=== PATIENT | female | born 1955 | race Caucasian/White ===

== ENCOUNTER 2019-08-20 16:46 | Observation (INO) | payer MEDICARE, OTHER ==
[~2019-08-20] VITALS: Ht 167.6 cm; Wt 104.3 kg
[~2019-08-20 16:46] MED LIST: AMBIEN10 MG PO; CELEXA10 MG PO; SIMVASTATIN10 MG PO; TIROSINT25 MCG PO
--- OUTSIDE RECORDS SUMMARY | 2019-08-20 16:49 | XMS REPORT | Summary of Care ---
Author Author Abril Floyd M.A. Organization Unknown Address Unknown Phone Unavailable Care Team Providers Care Aquatic Performer Name Role Phone Abril Floyd M.A. Unavailable Unavailable CATALINO Barahona, CHANDNI Unavailable Unavailable BLAKE Camp, ELIZABETH Unavailable Unavailable TRICIA Barahona, RAFAEL Unavailable Unavailable SPARKLE MAZARIEGOS MD Unavailable Unavailable RAVIN AlexandraOBennett, MARGAUX Unavailable Unavailable BLAKE CEMENT FINISHER-C, ELIZABETH Unavailable Unavailable RAVIN GUERRA, MARGAUX Unavailable Unavailable Unavailable Unavailable Functional Status Name Dates Details Functional status health issues are not documented Status: Name Dates Details Cognitive status health issues are not documented Status: Problems Name Dates Details Paronychia of finger (681.02, L03.019) Status: Active Olecranon bursitis (726.33, M70.20) Status: Active Influenza vaccine needed (V04.81, Z23) Status: Active Gastroesophageal reflux disease (530.81, K21.9) Status: Active Urinary tract infection (599.0, N39.0) Status: Active Insomnia (780.52, G47.00) Status: Active Establishing care with new doctor, encounter for (V65.8, Z76.89) Status: Active Hypothyroidism (244.9, E03.9) Status: Active Fracture of left fibula (823.81, S82.402A) Status: Active Fracture of tibia, distal (824.8, S82.309A) Status: Active Reactive depression (300.4, F32.9) Status: Active Urine incontinence (788.30, R32) Status: Active Constipation (564.00, K59.00) Status: Active Cauda equina syndrome (344.60, G83.4) Status: Active Paraplegia (344.1, G82.20) Status: Active Anxiety (300.00, F41.9) Status: Active Moderate episode of recurrent major depressive disorder (296.32, F33.1) Status: Active Decubitus ulcer of buttock, unspecified laterality, unspecified ulcer stage (707.05, L89.309) Status: Active Fracture of left tibia (823.80, S82.202A) Status: Active Medications Name Dates Details Aspirin 81 MG TABS TAKE TABLET 6am once daily Active Morphine Sulfate ER 60 MG Oral Capsule Extended Release 24 Hour TAKE CAPSULE 6am and 6pm once twice daily. * Refills: 0 Active Senokot 8.6 MG Oral Tablet TAKE 4 TABLET DAILY * Refills: 0 Active Docusate Sodium 100 MG Oral Tablet TAKE 2 TABLET TWICE DAILY * Refills: 0 Active Vitamin D3 1000 UNIT Oral Capsule TAKE DIRECTED. * Refills: 0 Active Morphine Sulfate 30 MG Oral Tablet TAKE 2 tablets at noon and one at bedtime as needed * Refills: 0 Active Tylenol Extra Strength TABS TAKE 2 TABLET DAILY * Refills: 0 Active Amitriptyline HCl - 50 MG Oral Tablet TAKE 1 TABLET BY MOUTH EVERY NIGHT AT BEDTIME * Quantity: 90 Refills: 0 RAFAEL CLARKE M.D. * Start : 31-May-2018 Active Levothyroxine Sodium 125 MCG Oral Tablet TAKE 1 TABLET BY MOUTH EVERY DAY * Quantity: 30 Refills: 2 ELIZABETH LOZANO N.P. * Start : 06-Feb-2015 Active PriLOSEC 40 MG CPDR TAKE ONE CAPSULE BY MOUTH EVERY DAY * Refills: 0 Active Fish Oil 1000 MG Oral Capsule ONCE DAILY * Refills: 0 Active Lyrica 75 MG Oral Capsule TAKE 1 CAPSULE 3 TIMES DAILY. * Refills: 0 Active Baclofen 10 MG Oral Tablet Take 1/2 tab twice a day as needed. * Quantity: 90 Refills: 1 CHANDNI BAE M.D. * Start : 03-Jan-2018 Active LORazepam 0.5 MG Oral Tablet TAKE ONE TABLET BY MOUTH 3 TIME A DAY * Quantity: 90 Refills: 1 RAFAEL CLARKE M.D. * Start : 17-Jan-2018 Active Allergies and Adverse Reactions Name Dates Details gabapentin (Allergy) Status: Active Past Medical History Name Dates Details History of depression (V11.8, Z86.59) Status: Resolved History of gastroesophageal reflux (GERD) (V12.79, Z87.19) Status: Resolved History of Stroke syndrome Status: Resolved History of Thyroid trouble (246.9, E07.9) Status: Resolved Procedures Procedure Dates Details History of Tonsillectomy With Adenoidectomy Completed History of Ankle Surgery Completed History of Hysterectomy Completed History of Spinal surgery Completed Immunization Name Dates Details Influenza Lot #: [id number] on: 12-Aug-2014 Family History Name Dates Details Family history of alcohol abuse (V61.41, Z81.1) Status: Active Name Dates Details Family history of diabetes mellitus (V18.0, Z83.3) Status: Active Name Dates Details Family history of Hypertension, benign (401.1, I10) Status: Active Name Dates Details Family history of cerebrovascular accident (CVA) in father (V17.1, Z82.3) Status: Active Social History Name Dates Details - Status: Name Dates Details Never smoker Vital Signs Date Test Result Details No Known Vitals to report Results Date Description Value Details Results not documented Plan of Care Name Dates Details Planned Observations Planned Goals not documented Instructions Name Dates Details Instructions not documented Encounters Appointment; ELIZABETH LOZANO NP Encounter Diagnosis: Problem not documented On: 06-Dec-2017 14:45 Appointment; ELIZABETH LOZANO NP Encounter Diagnosis: Problem not documented On: 29-Dec-2017 13:30 Appointment; MICHAEL HERRERA M.D. Encounter Diagnosis: Problem not documented On: 30-Dec-2017 12:15 Appointment; MICHAEL HERRERA M.D. Encounter Diagnosis: Problem not documented On: 16-Jan-2018 11:00 Appointment; CHANDNI BAE M.D. Encounter Diagnosis: Problem not documented On: 17-Jan-2018 11:15 Appointment; DANK RICE LCSW Encounter Diagnosis: Problem not documented On: 23-Jan-2018 14:00 Appointment; CHANDNI BAE M.D. Encounter Diagnosis: Problem not documented On: 27-Jan-2018 13:15 Appointment; MICHAEL HERRERA M.D. Encounter Diagnosis: Problem not documented On: 30-Jan-2018 11:15 Appointment; RAFAEL CLARKE M.D. Encounter Diagnosis: Problem not documented On: 22-Feb-2018 14:00 Appointment; MICHAEL HERRERA M.D. Encounter Diagnosis: Problem not documented On: 06-Mar-2018 11:15 Appointment; MICHAEL HERRERA M.D. Encounter Diagnosis: Problem not documented On: 03-Apr-2018 11:15 Appointment; RAFAEL CLARKE M.D. Encounter Diagnosis: Problem not documented On: 25-Apr-2018 14:30
--- OUTSIDE RECORDS SUMMARY | 2019-08-20 16:49 | XMS REPORT ---
Author Author [facility] Address Unknown Phone Unavailable Care Team Providers Care Emergency Medical Tech Name Role Phone ALBER GOODSON Unavailable Unavailable Payers Payer Name Policy Type Policy Number Effective Date Expiration Date Problems This patient has no known problems. Allergies, Adverse Reactions, Alerts Allergy Name Allergy Type Status Severity Reaction(s) Onset Date Inactive Date Treating Clinician Comments No Known Allergies DA Active U 2019-05-14 00:00:00 No Known Contrast Allergies DA Active U 2008-03-24 00:00:00 No Known Drug Allergies DA Active U 2008-03-24 00:00:00 No Known Food Allergies DA Active U 2008-03-24 00:00:00 No Known Other Allergies DA Active U 2008-03-24 00:00:00 Medications This patient has no known medications. Results Test Description Test Time Test Comments Text Results Atomic Results Result Comments SURGICAL SPECIMENS 2019-05-22 19:47:00 RUN DATE: 05/22/19 [facility] *LIVE* PAGE 1 RUN TIME: 1945 Specimen Inquiry RUN USER: INTERFACE PATIENT: CHANO CRUZ LOC: MatthieuWS U #: [id number] AGE/SX: 63/F [place] [facility] [place]16[place]19REG DR: Corey Rodgers MD : 57 BED: 1 DIS: 05/17/19 STATUS: DIS Mo TLOC: SPEC #: [id number] RECD: 05/17/19 STATUS: USMAN REQ #: [id number] LUPE: 05/17/[address]: Corey Rodgers MD ENTERED: 05/21/19 SP TYPE: SURG SPEC OTHR DR: Lien Ayala MD, Kent D MD Wang,Robin Rainey MDORDERED: GM LEVEL 4 CODES: [id number] - SPINAL CORD, NO COPIES TO: Lien Ayala MD [address] [place] [address] Angel Arredondo MD [address] [place] [address] Corey Rodgers MD [address] [place] [address] [place] [address] [facility] [place] [address] PROCEDURES: GM LEVEL 4 (Incomplete) TISSUES: 1. SPINAL CORD, NOS - lead carpenter, spnal cord, stimulator FINAL DIAGNOSIS lead carpenter, spinal cord, stimulator: For identification (Gross examination). GROSS AND MICROSCOPIC GROSS EXAMINATION: Received the specimen as designated above and it consists of one medical transcriptionist measuring 5.5 x 5.5 x 0.7 cm with attached two plastic covered leads measuring 26 cm in length and 0.1 cm in diameter and two segments of plastic covered leads measuring 32 cm in length, 0.1 cm in diameter each. The specimen is for gross only. CONTINUED ON NEXT PAGE RUN DATE: 05/22/19 [facility] *LIVE* PAGE 2 RUN TIME: 1945 Specimen Inquiry RUN USER: INTERFACE SPEC #: [id number] PATIENT: CHANO CRUZ #[id number] (Continued) POST-OP DIAGNOSIS Chronic pain PRE-OP DIAGNOSIS Chronic pain Signed SIGNATURE ON FILE Juliet Mcclendon MD 05/22/191946 END OF REPORT CBC W/AUTO DIFF 2019-05-17 08:06:00 WHITE BLOOD CELL (test code=WBC) 4.76 x10 3/uL 4.5-11.0 RED BLOOD CELL (test code=RBC) 3.86 x10 6/uL 3.54-5.02 HEMOGLOBIN (test code=HGB) 10.7 g/dL 11.0-15.0 HEMATOCRIT (test code=HCT) 34.8 % 33.0-45.0 MEAN CELL VOLUME (test code=MCV) 90.2 fL 81.0-99.0 MEAN CELL HGB (test code=MCH) 27.7 pg 27.0-33.0 MEAN CELL HGB CONCETRATION (test code=MCHC) 30.7 g/dL 33.0-37.0 RED CELL DISTRIBUTION WIDTH CV (test code=RDW) 13.7 % 11.5-14.5 RED CELL DISTRIBUTION WIDTH SD (test code=RDW-SD) 44.9 fL 37.0-54.0 PLATELET COUNT (test code=PLT) 183 x10 3/uL 150-400 MEAN PLATELET VOLUME (test code=MPV) 11.7 fL 7.0-9.0 NEUTROPHIL % (test code=NT%) 60.2 % 56.0-77.0 IMMATURE GRANULOCYTE % (test code=IG%) 0.2 % 0.0-2.0 LYMPHOCYTE % (test code=LY%) 29.2 % 14.0-32.0 MONOCYTE % (test code=MO%) 7.1 % 4.8-9.0 EOSINOPHIL % (test code=EO%) 2.9 % 0.3-3.7 BASOPHIL % (test code=BA%) 0.4 % 0.0-2.0 NUCLEATED RBC % (test code=NRBC%) 0.0 % 0-0 NEUTROPHIL # (test code=NT#) 2.86 x10 3/uL 2.0-7.6 IMMATURE GRANULOCYTE # (test code=IG#) 0.01 x10 3/uL 0.00-0.03 LYMPHOCYTE # (test code=LY#) 1.39 x10 3/uL 1.0-3.8 MONOCYTE # (test code=MO#) 0.34 x10 3/uL 0.1-0.8 EOSINOPHIL # (test code=EO#) 0.14 x10 3/uL 0.0-0.2 BASOPHIL # (test code=BA#) 0.02 x10 3/uL 0.0-0.2 NUCLEATED RBC # (test code=NRBC#) 0.00 x10 3/uL 0.0-0.1 MANUAL DIFF REQUIRED (test code=MDIFF) NO PROTHROMBIN [id number] 07:06:00* Test Item Value Reference Range Comments PROTHROMBIN TIME PATIENT (test code=PTP) 11.4 SECONDS 9.3-12.9 INTERNATIONAL NORMAL RATIO (test code=INR) 1.0 0.8-1.2 TARGET INR BY INDICATION Indication INR1. Prophylaxis of venous thrombosis 2.0 - 3.0 (orthopedic surgery), Prophylaxis of venous thrombosis (other than high-risk surgery), Treatment of Deep Vein Thrombosis/Pulmonary Embolism, Prevention of systemic embolism - Tissue heart valves, Acute Myocardial Infarction (to prevent systemic embolism), Valvular heart disease, Atrial Fibrillation, Bileaflet mechanical valve in aortic position.2. Mechanical prosthetic valves (high risk), 2.5 - 3.5 Presence of Lupus Anticoagulant or Antiphospholipid Antibodies, Prevention of systemic embolism - Acute Myocardial Infarction (to prevent recurrent infarct). THROMBOPLASTIN TIME [id number] 07:06:00* Test Item Value Reference Range Comments THROMBOPLASTIN TIME PARTIAL (test code=PTT) 30.4 Seconds 25.0-39.5 Therapeutic Range: 50.4 - 88.3 Seconds Effective 01/16/2019 URINALYSIS [id number] 06:50:00* Test Item Value Reference Range Comments UA COLOR (test code=COLU) YELLOW YEL/STRAW UA APPEARANCE (test code=APPU) CLEAR CLEAR UA GLUCOSE DIPSTICK (test code=DGLUU) NEGATIVE NEGATIVE UA BILIRUBIN DIPSTICK (test code=BILU) NEGATIVE NEGATIVE UA KETONE DIPSTICK (test code=KETU) NEGATIVE NEGATIVE UA SPECIFIC GRAVITY (test code=SGU) 1.015 1.005-1.030 UA BLOOD DIPSTICK (test code=CHAMP) NEGATIVE NEGATIVE UA PH DIPSTICK (test code=KELLY) 7.0 5.0-7.0 UA PROTEIN DIPSTICK (test code=PROU) NEGATIVE NEGATIVE UA UROBILINIOGEN DIPSTICK (test code=URO) 0.2 mg/dL 0.2-1.0 UA NITRITE DIPSTICK (test code=PAULA) NEGATIVE NEGATIVE UA LEUKOCYTE ESTERASE DIPSTICK (test code=LEUU) NEGATIVE NEGATIVE UA RBC (test code=RBCU) 0-3 RBC/HPF 0-3 UA WBC NO REFLEX (test code=WBCUCL) 4-9 WBC/HPF 0-3 UA BACTERIA (test code=BACU) TRACE /HPF NONE SEEN UA SQUAMOUS CELLS (test code=SQU) 0-5 /HPF NONE SEEN UA MUCUS (test code=MUCU) TRACE /LPF NONE SEEN - XR CHEST 2 [id number] 17:09:00 FAX: Angel Chauhan MD [phone] [place]: St: PRE FAX: Robin German [phone] Name: CHANO CRUZ [facility] : 1955 Age/S: 63/F [address] [place], [place] [address]vd Unit #: [id number] Loc: [place] [address] Phys: Robin Mcclendon MD Acct: [id number] Dis Date: Status: PRE [facility] PHONE #: [phone] Exam Date: 05/14/2019 170 FAX #: [phone] Reason: REMOVAL OF SPINAL NEROSTIMULANTORE EXAMS: CPT CODE: [id number] XR CHEST 2 V [id number] EXAM: XR CHEST 2 VIEWS DATE: 05/14/2019 3:05 PM : 1955; Age: 63 years y/o Female INDICATION: REMOVAL OF SPINAL NEROSTIMULANTORE COMPARISON: None. TECHNIQUE: PA and lateral chest radiographs. FINDINGS: Lines, tubes and hardware: Spinal stimulator thoracolumbar leads are partially seen. Lungs and pleura: The lungs are clear. No pleural effusion. Heart and mediastinum: The heart size is normal for technique. The mediastinal contours are normal. Pulmonary vascularity is normal. IMPRESSION: No acute cardiopulmonary process. SL: [id number] at 1709 Reported and signed by: Venkat Singh D.O. CC: Angel Arredondo MD; Robin Mcclendon MD Technologist: RT Key(R) Trnscrd Date/Time/By: 05/14/2019 (1706) : By: [email or web address] Orig Print D/T: S: 05/14/2019 (2414) PAGE 1 Signed Report PROTHROMBIN [id number] 16:23:00* Test Item Value Reference Range Comments PROTHROMBIN TIME PATIENT (test code=PTP) 11.0 SECONDS 9.3-12.9 INTERNATIONAL NORMAL RATIO (test code=INR) 1.0 0.8-1.2 TARGET INR BY INDICATION Indication INR1. Prophylaxis of venous thrombosis 2.0 - 3.0 (orthopedic surgery), Prophylaxis of venous thrombosis (other than high-risk surgery), Treatment of Deep Vein Thrombosis/Pulmonary Embolism, Prevention of systemic embolism - Tissue heart valves, Acute Myocardial Infarction (to prevent systemic embolism), Valvular heart disease, Atrial Fibrillation, Bileaflet mechanical valve in aortic position.2. Mechanical prosthetic valves (high risk), 2.5 - 3.5 Presence of Lupus Anticoagulant or Antiphospholipid Antibodies, Prevention of systemic embolism - Acute Myocardial Infarction (to prevent recurrent infarct). THROMBOPLASTIN TIME [id number] 16:23:00* Test Item Value Reference Range Comments THROMBOPLASTIN TIME PARTIAL (test code=PTT) 31.8 Seconds 25.0-39.5 Therapeutic Range: 50.4 - 88.3 Seconds Effective 01/16/2019 COMPREHENSIVE METABOLIC [id number] 16:15:00* Test Item Value Reference Range Comments SODIUM (test code=NA) 140 mEq/L 134-147 POTASSIUM (test code=K) 3.6 mEq/L 3.4-5.0 CHLORIDE (test code=CL) 106 mEq/L 100-108 CARBON DIOXIDE (test code=CO2) 31 mEq/L 21-33 ANION GAP (test code=GAP) 7 0-20 GLUCOSE (test code=GLU) 85 mg/dL 70-110 BLOOD UREA NITROGEN (test code=BUN) 12 mg/dL 7-18 GLOMERULAR FILTRATION RATE (test code=GFR) 101.3 80-90 Units of measure=ml/min/1.73 m2 CREATININE (test code=CREAT) 0.6 mg/dL 0.6-1.3 TOTAL PROTEIN (test code=PROT) 6.4 g/dL 6.4-8.2 ALBUMIN (test code=ALB) 3.60 g/dL 3.4-5.0 CALCIUM (test code=CA) 8.5 mg/dL 8.0-10.5 BILIRUBIN TOTAL (test code=BILT) 0.40 mg/dL 0.0-1.0 SGOT/AST (test code=AST) 13 IUnit/L 15-37 SGPT/ALT (test code=ALT) 15 IUnit/L 15-65 ALKALINE PHOSPHATASE TOTAL (test code=ALKP) 92 IUnit/L 20-125 CBC W/AUTO [id number] 15:51:00* Test Item Value Reference Range Comments WHITE BLOOD CELL (test code=WBC) 4.95 x10 3/uL 4.5-11.0 RED BLOOD CELL (test code=RBC) 4.49 x10 6/uL 3.54-5.02 HEMOGLOBIN (test code=HGB) 12.3 g/dL 11.0-15.0 HEMATOCRIT (test code=HCT) 39.3 % 33.0-45.0 MEAN CELL VOLUME (test code=MCV) 87.5 fL 81.0-99.0 MEAN CELL HGB (test code=MCH) 27.4 pg 27.0-33.0 MEAN CELL HGB CONCETRATION (test code=MCHC) 31.3 g/dL 33.0-37.0 RED CELL DISTRIBUTION WIDTH CV (test code=RDW) 13.5 % 11.5-14.5 RED CELL DISTRIBUTION WIDTH SD (test code=RDW-SD) 43.5 fL 37.0-54.0 PLATELET COUNT (test code=PLT) 212 x10 3/uL 150-400 MEAN PLATELET VOLUME (test code=MPV) 11.3 fL 7.0-9.0 NEUTROPHIL % (test code=NT%) 60.4 % 56.0-77.0 IMMATURE GRANULOCYTE % (test code=IG%) 0.2 % 0.0-2.0 LYMPHOCYTE % (test code=LY%) 27.3 % 14.0-32.0 MONOCYTE % (test code=MO%) 8.1 % 4.8-9.0 EOSINOPHIL % (test code=EO%) 3.6 % 0.3-3.7 BASOPHIL % (test code=BA%) 0.4 % 0.0-2.0 NUCLEATED RBC % (test code=NRBC%) 0.0 % 0-0 NEUTROPHIL # (test code=NT#) 2.99 x10 3/uL 2.0-7.6 IMMATURE GRANULOCYTE # (test code=IG#) 0.01 x10 3/uL 0.00-0.03 LYMPHOCYTE # (test code=LY#) 1.35 x10 3/uL 1.0-3.8 MONOCYTE # (test code=MO#) 0.40 x10 3/uL 0.1-0.8 EOSINOPHIL # (test code=EO#) 0.18 x10 3/uL 0.0-0.2 BASOPHIL # (test code=BA#) 0.02 x10 3/uL 0.0-0.2 NUCLEATED RBC # (test code=NRBC#) 0.00 x10 3/uL 0.0-0.1 MANUAL DIFF REQUIRED (test code=MDIFF) NO FL, DRUM DYEING MACHINE OPERATOR IN OR/30 MINUTE [id number] 11:29:00Reason for exam:-> PERCUTANEOUS IMPLANTATION OF SPINAL CORD STIMULATOR AND IMPLANTABLE PULSE GENERA TORFINAL REPORT Intraoperative fluoroscopy films performed by the referring physician. Number of images: 1Fluoroscopic time: 2.5 minutes The films were submitted to PACS postprocedure. The radiologist was not present at the time of examination. An interpretation was not requested. The submitted images are nondiagnostic without real-time visualization. Please refer to the performing physician's dictation for any and all details regarding the procedure including the submitted images. The radiologist did not perform fluoroscopy. Signed: Jessica Ponce MDReport Verified Date/Time: 10/11/2017 11:29:13 Reading Location: [facility] Radiology Reading Room [id number] 09:14:00* Test Item Value Reference Range Comments SODIUM (BEAKER) (test xuvn=365) 141 meq/L 136-145 POTASSIUM (BEAKER) (test mujj=465) 3.8 meq/L 3.5-5.1 CHLORIDE (BEAKER) (test csha=058) 105 meq/L 98-107 CO2 (BEAKER) (test qlhb=287) 30 meq/L 22-29 BUN AND [id number] 09:14:00* Test Item Value Reference Range Comments BLOOD UREA NITROGEN (BEAKER) (test trfa=957) 16 mg/dL 7-21 CREATININE (BEAKER) (test dkdh=603) 0.71 mg/dL 0.57-1.25 EGFR (BEAKER) (test dcxe=2758) 84 mL/min/1.73 sq m ESTIMATED GFR IS NOT ACCURATE CREATININE CLEARANCE IN PREDICTING GLOMERULAR FILTRATION RATE. ESTIMATED GFR IS NOT APPLICABLE FOR DIALYSIS PATIENTS. [id number] 08:44:00* Test Item Value Reference Range Comments HEMOGLOBIN (BEAKER) (test enyn=554) 12.5 GM/DL 11.2-15.7 PREOPURINALYSIS W/ REFLEX URINE [id number] 16:40:00* Test Item Value Reference Range Comments COLOR (BEAKER) (test aeud=775) Yellow CLARITY (BEAKER) (test thlg=019) Clear SPECIFIC GRAVITY UA (BEAKER) (test xaiu=768) 1.008 1.001-1.035 PH UA (BEAKER) (test mfmb=895) 7.0 5.0-8.0 PROTEIN UA (BEAKER) (test nrol=475) Negative Negative GLUCOSE UA (BEAKER) (test qavn=288) Negative Negative KETONES UA (BEAKER) (test rzfa=509) Negative Negative BILIRUBIN UA (BEAKER) (test kcfk=496) Negative Negative BLOOD UA (BEAKER) (test euzz=089) Negative Negative NITRITE UA (BEAKER) (test wyhv=660) Negative Negative LEUKOCYTE ESTERASE UA (BEAKER) (test jqhi=299) Negative Negative UROBILINOGEN UA (BEAKER) (test gykl=850) 0.2 mg/dL 0.2-1.0 RBC UA (BEAKER) (test pizc=965) 0 /HPF WBC UA (BEAKER) (test kfof=833) 4 /HPF SOURCE(BEAKER) (test owwk=3087) [id number] 16:39:00* Test Item Value Reference Range Comments PARTIAL THROMBOPLASTIN TIME (BEAKER) (test fqan=235) 29.7 seconds 22.5-36.0 BASIC METABOLIC [id number] 16:39:00* Test Item Value Reference Range Comments SODIUM (BEAKER) (test nwbl=353) 140 meq/L 136-145 POTASSIUM (BEAKER) (test atxz=422) 3.9 meq/L 3.5-5.1 CHLORIDE (BEAKER) (test wwbb=570) 105 meq/L 98-107 CO2 (BEAKER) (test crpy=872) 29 meq/L 22-29 BLOOD UREA NITROGEN (BEAKER) (test bggb=057) 15 mg/dL 7-21 CREATININE (BEAKER) (test xloa=788) 0.65 mg/dL 0.57-1.25 GLUCOSE RANDOM (BEAKER) (test jxmw=423) 96 mg/dL 70-105 CALCIUM (BEAKER) (test oizi=600) 8.9 mg/dL 8.4-10.2 EGFR (BEAKER) (test ddll=6494) 93 mL/min/1.73 sq m ESTIMATED GFR IS NOT ACCURATE CREATININE CLEARANCE IN PREDICTING GLOMERULAR FILTRATION RATE. ESTIMATED GFR IS NOT APPLICABLE FOR DIALYSIS PATIENTS. PROTHROMBIN [id number] 16:38:00* Test Item Value Reference Range Comments PROTIME (BEAKER) (test egbn=429) 12.3 seconds 11.7-14.7 INR (BEAKER) (test vhti=947) 0.9 <=5.9 RECOMMENDED COUMADIN/WARFARIN INR THERAPY RANGESSTANDARD DOSE: 2.0 - 3.0 Inclu jocy: PROPHYLAXIS for venous thrombosis, systemic embolization; TREATMENT for scot ous thrombosis and/or pulmonary embolus.HIGH RISK: Target INR is 2.5-3.5 for pat ients with mechanical heart valves.RAD, CHEST, 2 [id number] 16:30:00Reason for exam:->pre op testingFINAL REPORT Chest x-ray Clinical History: pre op testing Comparison: March 26, 2013 Views: 2 Chest x- ray:The cardiac and mediastinal silhouettes are within normal limits. There is no evidence of a pneumothorax. There is no evidence of a pleural effusion. There is no evidence of overt cardiac failure. The visible regional skeleton is intact. There is evidence of a focal parenchymal opacity. There is desilhouetting of the right heart border. A right middle lobe pneumonia is suspected. Impression: Right middle lobe infiltrate. A follow-up study is recommended to ensure interval resolution. The referring physician was paged. Signed: Jie Rey MDReport Verified Date/Time: 09/02/2017 16:30:21 Reading Location: [address] Radiology Reading Room W/PLT COUNT & AUTO DIFFERENTIAL 2017-09-02 16:16:00* Test Item Value Reference Range Comments WHITE BLOOD CELL COUNT (BEAKER) (test vcds=278) 6.0 K/ L 3.5-10.5 RED BLOOD CELL COUNT (BEAKER) (test iqia=728) 4.76 M/ L 3.93-5.22 HEMOGLOBIN (BEAKER) (test lcwj=274) 12.7 GM/DL 11.2-15.7 HEMATOCRIT (BEAKER) (test poto=618) 40.2 % 34.1-44.9 MEAN CORPUSCULAR VOLUME (BEAKER) (test jmlr=398) 84.5 fL 79.4-94.8 MEAN CORPUSCULAR HEMOGLOBIN (BEAKER) (test nooa=911) 26.7 pg 25.6-32.2 MEAN CORPUSCULAR HEMOGLOBIN CONC (BEAKER) (test nooh=530) 31.6 GM/DL 32.2-35.5 RED CELL DISTRIBUTION WIDTH (BEAKER) (test vlsl=169) 14.2 % 11.7-14.4 PLATELET COUNT (BEAKER) (test trou=947) 202 K/CU MM 150-450 MEAN PLATELET VOLUME (BEAKER) (test mcne=399) 11.4 fL 9.4-12.3 NUCLEATED RED BLOOD CELLS (BEAKER) (test ewxm=243) 0 /100 WBC 0-0 NEUTROPHILS RELATIVE PERCENT (BEAKER) (test cgkq=187) 59 % LYMPHOCYTES RELATIVE PERCENT (BEAKER) (test fdzg=604) 28 % MONOCYTES RELATIVE PERCENT (BEAKER) (test ssni=366) 6 % EOSINOPHILS RELATIVE PERCENT (BEAKER) (test qtle=083) 5 % BASOPHILS RELATIVE PERCENT (BEAKER) (test udbm=265) 1 % NEUTROPHILS ABSOLUTE COUNT (BEAKER) (test mbtk=610) 3.59 K/ L 1.56-6.13 LYMPHOCYTES ABSOLUTE COUNT (BEAKER) (test spbl=635) 1.69 K/ L 1.18-3.74 MONOCYTES ABSOLUTE COUNT (BEAKER) (test ucdd=330) 0.38 K/ L 0.24-0.36 EOSINOPHILS ABSOLUTE COUNT (BEAKER) (test jjpm=988) 0.30 K/ L 0.04-0.36 BASOPHILS ABSOLUTE COUNT (BEAKER) (test ivul=008) 0.03 K/ L 0.01-0.08 IMMATURE GRANULOCYTES-RELATIVE PERCENT (BEAKER) (test ptwe=7775) 1 % 0-1 [id number] 15:32:00* Test Item Value Reference Range Comments SODIUM (BEAKER) (test kubj=854) 140 meq/L 136-145 POTASSIUM (BEAKER) (test imqe=092) 3.8 meq/L 3.5-5.1 CHLORIDE (BEAKER) (test aczy=875) 106 meq/L 98-107 CO2 (BEAKER) (test bdym=460) 27 meq/L 22-29 [id number] 15:32:00* Test Item Value Reference Range Comments GLUCOSE RANDOM (BEAKER) (test jqrt=826) 96 mg/dL 70-105 BUN AND [id number] 15:32:00* Test Item Value Reference Range Comments BLOOD UREA NITROGEN (BEAKER) (test ijus=694) 17 mg/dL 7-21 CREATININE (LURDES) (test nzsu=825) 0.67 mg/dL 0.57-1.25 EGFR (LURDES) (test wujc=1083) 89 mL/min/1.73 sq m ESTIMATED GFR IS NOT ACCURATE CREATININE CLEARANCE IN PREDICTING GLOMERULAR FILTRATION RATE. ESTIMATED GFR IS NOT APPLICABLE FOR DIALYSIS PATIENTS. [id number] 15:14:00* Test Item Value Reference Range Comments HEMOGLOBIN (LURDES) (test mbwr=071) 11.6 GM/DL 11.2-15.7
[2019-08-20] MEDS ORDERED: ONDANSETRON HCL INJ 2MG/ML 2ML 2 MG/ML VIAL IV PRN (18:00)
[2019-08-20] MEDS ORDERED: ENOXAPARIN SOD INJ 120 MG/0.8 ML SYR SC SCH (18:00)
[2019-08-20] MEDS ORDERED: SODIUM CHLORIDE FLUSH 10 ML SYR INJ PRN (18:00)
[2019-08-20 18:30] LABS: BASOPHILS % 0.5 % (0.0-1.0); EOSINOPHILS # (AUTO) 0.2 (0.0-0.4); EOSINOPHILS % 3.7 % (0.0-6.0); HEMATOCRIT 36.4 % (34.2-44.1); HEMOGLOBIN 11.4 g/dL (12.0-16.0); LYMPHOCYTES # (AUTO) 1.3 (1.0-3.2); LYMPHOCYTES % 30.9 % (18.0-39.1); MEAN CORPUSCULAR HGB CONC 31.3 g/dL (31-35); MEAN CORPUSCULAR VOLUME 83.1 fL (81-99); MONOCYTES # (AUTO) 0.3 (0.2-0.8); MONOCYTES % 6.7 % (4.4-11.3); NEUTROPHILS # (AUTO) 2.5 (2.1-6.9); PLATELET COUNT 203 x10e3/uL (140-360); RED BLOOD COUNT 4.38 x10e6/uL (3.6-5.1); RED CELL DISTRIBUTION WIDTH 14.3 % (11.7-14.4)
[2019-08-20 18:34] LABS: INR 0.88; PARTIAL THROMBOPLASTIN TIME 29.6 seconds (23.8-35.5); PROTHROMBIN TIME 12.4 seconds (11.9-14.5)
[2019-08-20 18:44] LABS: ALANINE AMINOTRANSFERASE 15 IU/L (0-55); ALBUMIN 3.9 g/dL (3.5-5.0); ALBUMIN/GLOBULIN RATIO 1.5 (0.8-2.0); ALKALINE PHOSPHATASE 80 IU/L (40-150); ANION GAP 10.6 mmol/L (8-16); BLOOD UREA NITROGEN 10 mg/dL (7-26); BUN/CREATININE RATIO 15 (6-25); CARBON DIOXIDE 29 mmol/L (22-29); CHLORIDE 103 mmol/L (98-107); CREATINE KINASE 100 IU/L (29-168); CREATININE, SERUM 0.68 mg/dL (0.57-1.11); EST GLOMERULAR FILTRATION RATE > 60 ML/MIN (60-); GLUCOSE 112 mg/dL (74-118); POTASSIUM 3.6 mmol/L (3.5-5.1); SODIUM 139 mmol/L (136-145)
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
[2019-08-20 20:10] VITALS: BP 122/76
[2019-08-20 20:15] VITALS: BP 122/76
[2019-08-20 20:22] VITALS: BP 122/76
[2019-08-20] MEDS ORDERED: ENOXAPARIN INJ 80 MG/0.8 ML SYR SC SCH (21:00)
--- NOTE | 2019-08-20 21:14 | NUR ---
SPOKE WITH MD MAZARIEGOS CONCERNING PATIENT'S REQUEST TO HAVE A PEDERSEN D/T URINARY RETENTION. PATIENT SELF CATHETERIZES AT HOME. ORDERS RECEIVED TO INSERT PEDERSEN CATHETER.
[2019-08-20] MEDS ORDERED: BACLOFEN10 MG PO (21:50)
[2019-08-20] MEDS ORDERED: SENOKOT8.6 MG PO (21:50)
[2019-08-20] MEDS ORDERED: MS CONTIN15 MG PO (21:50)
[2019-08-20] MEDS ORDERED: ATIVAN1 MG PO (21:50)
[2019-08-20] MEDS ORDERED: LYRICA50 MG PO (21:50)
[2019-08-20] MEDS ORDERED: DOCUSATE SODIU100 MG PO (21:50)
[2019-08-20] MEDS ORDERED: VITAMIN D1000 UNI1 PO (21:50)
[2019-08-20] MEDS ORDERED: FISH OIL 1,0001 EAC2 PO (21:50)
[2019-08-20] MEDS ORDERED: FLUOXETINE HCL20 M1 PO (21:50)
[2019-08-20] MEDS ORDERED: LEVOTHYROXINE125 MCG PO (21:50)
[2019-08-20] MEDS ORDERED: METHADONE HCL5 MG PO (21:50)
[2019-08-20] MEDS ORDERED: PRILOSEC OTC20 MG PO (21:50)
--- NOTE | 2019-08-20 21:51 | NUR ---
SPOKE WITH MD MAZARIEGOS CONCERNING RESUMING HOME MEDS, OKAY TO RESUME ALL HOME MEDS.
[2019-08-20] MEDS ORDERED: INFLUENZA VIRUS VAC SPLIT INJ 0.5 ML SYR IM SCH (22:55)
[2019-08-21] VITALS (8 sets, daily range): BP systolic 104–153; BP diastolic 55–83
[2019-08-21] MEDS ORDERED: NON-FORMULARY MEDICATION (Omeprazole Magnesium (Prilosec Otc) 40 MG) PO SCH (06:00)
[2019-08-21 06:02] LABS: BASOPHILS % 0.5 % (0.0-1.0); EOSINOPHILS # (AUTO) 0.1 (0.0-0.4); LYMPHOCYTES # (AUTO) 1.5 (1.0-3.2); MEAN CORPUSCULAR HEMOGLOBIN 26.2 pg (28-32); MEAN CORPUSCULAR HGB CONC 31.4 g/dL (31-35); MEAN CORPUSCULAR VOLUME 83.3 fL (81-99); MONOCYTES # (AUTO) 0.4 (0.2-0.8); MONOCYTES % 8.1 % (4.4-11.3); NEUTROPHILS # (AUTO) 2.3 (2.1-6.9); NEUTROPHILS % 53.2 % (38.7-80.0); PLATELET COUNT 185 x10e3/uL (140-360); RED CELL DISTRIBUTION WIDTH 14.6 % (11.7-14.4)
[2019-08-21 06:11] LABS: INR 0.91; PROTHROMBIN TIME 12.7 seconds (11.9-14.5)
[2019-08-21 06:12] LABS: PARTIAL THROMBOPLASTIN TIME 38.8 seconds (23.8-35.5)
[2019-08-21] MEDS: BACLOFEN 10 MG TAB PO SCH ×5 (06:17→21:58)
[2019-08-21] MEDS: LORAZEPAM 1 MG TAB PO SCH ×4 (06:17→21:58)
[2019-08-21] MEDS: FLUOXETINE HCL 20 MG CAP PO SCH (06:18)
[2019-08-21] MEDS: METHADONE HCL 5 MG TAB PO SCH ×4 (06:18→21:58)
[2019-08-21] MEDS: PANTOPRAZOLE SOD 40 MG TABEC PO SCH (06:19)
[2019-08-21] MEDS: LEVOTHYROXINE SODIUM 125 MCG TAB PO SCH ×2 (06:19→07:19)
[2019-08-21] MEDS: PREGABALIN 50 MG CAP PO SCH ×3 (06:20→12:18)
[2019-08-21 06:22] LABS: ALANINE AMINOTRANSFERASE 11 IU/L (0-55); ALBUMIN 3.4 g/dL (3.5-5.0); ALBUMIN/GLOBULIN RATIO 1.4 (0.8-2.0); ALKALINE PHOSPHATASE 72 IU/L (40-150); ANION GAP 12.4 mmol/L (8-16); BLOOD UREA NITROGEN 12 mg/dL (7-26); BUN/CREATININE RATIO 17 (6-25); CALCIUM 8.5 mg/dL (8.4-10.2); CARBON DIOXIDE 26 mmol/L (22-29); CHLORIDE 107 mmol/L (98-107); EST GLOMERULAR FILTRATION RATE > 60 ML/MIN (60-); GLUCOSE 110 mg/dL (74-118); POTASSIUM 3.4 mmol/L (3.5-5.1); SODIUM 142 mmol/L (136-145)
[2019-08-21] MEDS: MORPHINE SULFATE 15MG TAB CR PO SCH ×4 (06:27→21:58)
--- NOTE | 2019-08-21 07:00 | NUR ---
RECEIVED PATIENT RESTING IN BED NO S/S OF DISTRESS. BED LOW, WHEELS LOCKED, SIDE RAILS X2. CALL LIGHT IN REACH WILL CONTINUE TO MONITOR PATIENT.
[2019-08-21] MEDS ORDERED: LEVOTHYROXINE SODIUM 125 MCG TAB PO SCH (09:00)
[2019-08-21] MEDS ORDERED: NON-FORMULARY MEDICATION (Omega-3 Fatty Acids/Fish Oil (Fish Oil 1,000 Mg Capsule) 1,000 M PO SCH (09:00)
[2019-08-21] MEDS: SENNOSIDES 8.6 MG TAB PO SCH ×2 (09:01→16:59)
[2019-08-21] MEDS: CHOLECALCIFEROL 1,000 UNIT TAB PO SCH (09:01)
[2019-08-21] MEDS: RIVAROXABAN 15 MG TABLET PO SCH ×2 (09:01→16:59)
[2019-08-21] MEDS: OMEGA 3 POLYUNSAT FATTY ACIDS 1000 MG SOFTGEL PO SCH (09:01)
[2019-08-21] MEDS ORDERED: SENNOSIDES 17.2 MG PO SCH ×2 (12:00)
[2019-08-21] MEDS: DOCUSATE SODIUM 100 MG CAP PO SCH ×2 (12:18→16:59)
--- NOTE | 2019-08-21 14:50 | NUR ---
Visit made by the Spiritual Care Department Pastoral Visitor, Ada Del Angel. Pt sleeping soundly and no family present. Pastoral Visitor left a card describing availability of cable tool operator and instructions on how to contact a cable tool operator. [facility] Spiritual Care Department O: [phone] Pager: [phone] ([phone] number calling from)
--- NOTE | 2019-08-21 19:02 | NUR ---
WALKING ROUNDS PERFORMED, RECEIVED PT SITTING IN MOTORIZED WHEELCHAIR. PT IS AAOX3, RR EVEN AND NON-LABORED, ON ROOM AIR. NO S/SX OF DISTRESS NOTED. LEFT PT SITTING IN CHAIR. CALL LIGHT AND PHONE WITHIN REACH.
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
[2019-08-22] VITALS: BP 114/75
[2019-08-22 04:00] VITALS: BP 149/72
[2019-08-22] MEDS: BACLOFEN 10 MG TAB PO SCH (05:30)
[2019-08-22] MEDS: PANTOPRAZOLE SOD 40 MG TABEC PO SCH (05:30)
[2019-08-22] MEDS: METHADONE HCL 5 MG TAB PO SCH (05:30)
[2019-08-22] MEDS: PREGABALIN 50 MG CAP PO SCH (05:30)
[2019-08-22] MEDS: FLUOXETINE HCL 20 MG CAP PO SCH (05:30)
[2019-08-22] MEDS: MORPHINE SULFATE 15MG TAB CR PO SCH (05:30)
[2019-08-22] MEDS: LEVOTHYROXINE SODIUM 125 MCG TAB PO SCH (05:30)
[2019-08-22] MEDS: LORAZEPAM 1 MG TAB PO SCH (05:30)
--- NOTE | 2019-08-22 06:37 | Discharge Summary ---
DISCHARGE DIAGNOSIS: DVT of the right leg. DISPOSITION: The patient is discharged home. DISCHARGE MEDICATIONS: See discharge MAR plus new medicine is Xarelto 15 mg twice a day for 21 days and 20 mg once a day. FOLLOWUP: Followup is in two weeks with me. HISTORY OF PRESENT ILLNESS AND HOSPITAL COURSE: The patient is a lady, who suffers cauda equina syndrome, who is mostly wheelchair-bound, who started noticing some right lower extremity swelling, and a outpatient Doppler showed a DVT of the femoral vein area, so she was admitted, started on some Lovenox and had a long discussion with the patient regarding Coumadin versus Xarelto. The patient elected to go with the Xarelto, so she was started on it and we observed her for 24 hours in the hospital without any issues related to the Xarelto, so she was then discharged home with continuation of it and followup in two weeks with me. Please see also chart for full details. MD LEROY Davis/MYLA /[id number]
[2019-08-22 07:39] VITALS: BP 122/75
[2019-08-22] MEDS: CHOLECALCIFEROL 1,000 UNIT TAB PO SCH (08:06)
[2019-08-22] MEDS: SENNOSIDES 8.6 MG TAB PO SCH (08:06)
[2019-08-22] MEDS: RIVAROXABAN 15 MG TABLET PO SCH (08:06)
[2019-08-22] MEDS: OMEGA 3 POLYUNSAT FATTY ACIDS 1000 MG SOFTGEL PO SCH (08:06)
[2019-08-22 08:07] VITALS: BP 122/75
--- NOTE | 2019-08-22 09:16 | NUR ---
IV REMOVED WITHOUT COMPLICATION. PEDERSEN DISCONTINUED WITHOUT COMPLICATION. PT DRESSED AND GATHERED ALL BELONGINGS. DISCHARGE INSTRUCTIONS REVIEWED. PRESCRIPTION GIVEN TO PATIENT AND COPY MADE FOR CHART. PATIENT ESCORTED TO VEHICLE BY RN.
== END 2019-08-22 09:18 | disposition home or self-care (01) ==
LOC: ER 16:46 → INTOOBSV 17:50 → ERHOLD 17:50 → MED/SURG 19:59
PROVIDERS: ADMIT Internal Medicine; ATTEND Internal Medicine
DX: I82.411 Acute embolism and thrombosis of right femoral vein (principal); I69.365 Other paralytic syndrome following cerebral infarction, bilateral; G83.4 Cauda equina syndrome; I10 Essential (primary) hypertension; K21.9 Gastro-esophageal reflux disease without esophagitis; E03.9 Hypothyroidism, unspecified; Z82.49 Family history of ischemic heart disease and other diseases of the circulatory system; D64.9 Anemia, unspecified; E66.9 Obesity, unspecified; Z68.37 Body mass index [BMI] 37.0-37.9, adult; K59.2 Neurogenic bowel, not elsewhere classified
CPT/HCPCS: 36415 ×2; 80053 ×2; 82550; 82553; 84484; 85025 ×2; 85610 ×2; 85730 ×2; 93306; 99284; G0378 ×3; J1650 ×2; S0164 ×2

== ENCOUNTER → 2021-01-02 | Outpatient (CLI) | payer MEDICARE ==
[~2021-01-02] MED LIST changes: +ATIVAN1 MG PO; +BACLOFEN10 MG PO; +DOCUSATE SODIU100 MG PO; +FISH OIL 1,0001 EAC2 PO; +FLUOXETINE HCL20 M1 PO; +LEVOTHYROXINE125 MCG PO; +LYRICA50 MG PO; +METHADONE HCL5 MG PO; +MS CONTIN15 MG PO; +PRILOSEC OTC20 MG PO; +SENOKOT8.6 MG PO; +VITAMIN D1000 UNI1 PO
== END ==
LOC: MRI 08:06
PROVIDERS: ATTEND Anesthesiology Pain Medicine
DX: M54.2 Cervicalgia (principal)

== ENCOUNTER 2022-01-09 19:34 | Emergency (ER) | payer MEDICARE, OTHER ==
[~2022-01-09] VITALS: Ht 167.6 cm; Wt 117.9 kg
[2022-01-09 20:27] LABS: BASOPHILS % 0.2 % (0.0-1.0); EOSINOPHILS # (AUTO) 0.1 (0.0-0.4); HEMATOCRIT 33.9 % (34.2-44.1); HEMOGLOBIN 10.6 g/dL (12.0-16.0); LYMPHOCYTES # (AUTO) 0.5 (1.0-3.2); MEAN CORPUSCULAR HEMOGLOBIN 26.3 pg (28-32); MEAN CORPUSCULAR HGB CONC 31.3 g/dL (31-35); MEAN CORPUSCULAR VOLUME 84.1 fL (81-99); MONOCYTES # (AUTO) 0.6 (0.2-0.8); MONOCYTES % 6.1 % (4.4-11.3); PLATELET COUNT 245 x10e3/uL (140-360); RED BLOOD COUNT 4.03 x10e6/uL (3.6-5.1); RED CELL DISTRIBUTION WIDTH 16.1 % (11.7-14.4)
[2022-01-09] MEDS ORDERED: SODIUM CHLORIDE 0.9% 1000ML 1,000 ML IV SCH ×2 (20:30→23:00)
[2022-01-09 20:40] LABS: ALBUMIN/GLOBULIN RATIO 0.9 (0.8-2.0); ALKALINE PHOSPHATASE 91 IU/L (40-150); ANION GAP 14.2 mmol/L (8-16); BLOOD UREA NITROGEN 11 mg/dL (7-26); BUN/CREATININE RATIO 14 (6-25); CALCIUM 7.8 mg/dL (8.4-10.2); CARBON DIOXIDE 27 mmol/L (22-29); CHLORIDE 100 mmol/L (98-107); CREATININE, SERUM 0.79 mg/dL (0.57-1.11); EST GLOMERULAR FILTRATION RATE 73 ML/MIN (60-); GLUCOSE 129 mg/dL (74-118); POTASSIUM 3.2 mmol/L (3.5-5.1); SODIUM 138 mmol/L (136-145)
[2022-01-09 20:42] LABS: ALANINE AMINOTRANSFERASE < 6 IU/L (0-55)
[2022-01-09] MEDS ORDERED: SODIUM CHLORIDE 0.9% 50ML 50 ML ONE ×2 (21:06→23:47)
[2022-01-09] MEDS ORDERED: IOPAMIDOL 370 MG/ML 200 ML INFUS..BTL INJ ONE (21:07)
[2022-01-09 21:23] LABS: CLARITY,URINE HAZY (CLEAR); COLOR,URINE YELLOW (YELLOW)
[2022-01-09 21:24] LABS: KETONES,URINE NEGATIVE (NEGATIVE); LEUKOCYTE ESTERASE ,URINE LARGE (NEGATIVE); NITRITE,URINE NEGATIVE (NEGATIVE); PROTEIN,URINE DIPSTICK 2+ (NEGATIVE); URINE UROBILINOGEN 1 mg/dL (0.2 - 1); WBC,URINE (MAN) >50 /HPF (0-5)
[2022-01-09 21:25] LABS: AMORPHOUS SEDIMENT,URINE FEW (FEW); BACTERIA,URINE MANY /HPF; EPITHELIAL CELLS,URINE FEW /LPF; HYALINE CASTS 0-1 (0-1); MUCUS,URINE MODERATE (RARE)
[2022-01-09] MEDS ORDERED: CEFTRIAXONE 1 GM VIAL IV ONE (23:00)
[2022-01-09] MEDS ORDERED: CEFTRIAXONE SOD 1 GM 50 ML IV ONE (23:00)
[2022-01-09] MEDS ORDERED: CEFTRIAXONE 1 GM VIAL ONE (23:47)
== END 2022-01-10 01:20 | disposition other institution (70) ==
LOC: ER 19:47
DX: R50.9 Fever, unspecified (principal); N12 Tubulo-interstitial nephritis, not specified as acute or chronic; N13.30 Unspecified hydronephrosis; K59.00 Constipation, unspecified; L89.159 Pressure ulcer of sacral region, unspecified stage; I50.9 Heart failure, unspecified; E78.5 Hyperlipidemia, unspecified; F41.9 Anxiety disorder, unspecified; Z20.822 Contact with and (suspected) exposure to COVID-19; Z86.73 Personal history of transient ischemic attack (TIA), and cerebral infarction without residual deficits; Z86.718 Personal history of other venous thrombosis and embolism
CPT/HCPCS: 36415; 71045; 74177; 80053; 81001; 83605; 85025; 87040; 87086; 87186; 93005; 99284; J0696 ×2; J7030; Q9967; U0002

== ENCOUNTER 2022-11-01 05:44 | Emergency (ER) | payer MEDICARE, OTHER ==
[~2022-11-01] VITALS: Ht 167.6 cm; Wt 108.0 kg
[2022-11-01] MEDS ORDERED: FUROSEMIDE INJ 10 MG/ML 4 ML VIAL IV ONE (06:30)
[2022-11-01] MEDS ORDERED: METHADONE HCL 5 MG TAB PO ONE (06:30)
[2022-11-01 06:37] LABS: BASOPHILS % 0.5 % (0.0-1.0); EOSINOPHILS # (AUTO) 0.3 (0.0-0.4); HEMATOCRIT 36.4 % (34.2-44.1); HEMOGLOBIN 11.3 g/dL (12.0-16.0); LYMPHOCYTES # (AUTO) 1.6 (1.0-3.2); LYMPHOCYTES % 21.5 % (18.0-39.1); MEAN CORPUSCULAR HEMOGLOBIN 24.8 pg (28-32); MONOCYTES # (AUTO) 0.5 (0.2-0.8); MONOCYTES % 6.5 % (4.4-11.3); NEUTROPHILS # (AUTO) 4.9 (2.1-6.9); NEUTROPHILS % 66.6 % (38.7-80.0); PLATELET COUNT 225 x10e3/uL (140-360); RED BLOOD COUNT 4.55 x10e6/uL (3.6-5.1); RED CELL DISTRIBUTION WIDTH 17.6 % (11.7-14.4)
[2022-11-01] MEDS ORDERED: FUROSEMIDE INJ 10 MG/ML 2 ML VIAL ONE (06:37)
[2022-11-01 06:58] LABS: ALANINE AMINOTRANSFERASE 12 IU/L (0-55); ALBUMIN 3.5 g/dL (3.5-5.0); ALBUMIN/GLOBULIN RATIO 1.1 (0.8-2.0); ALKALINE PHOSPHATASE 89 IU/L (40-150); ANION GAP 13.8 mmol/L (8-16); BLOOD UREA NITROGEN 8 mg/dL (7-26); BUN/CREATININE RATIO 12 (6-25); CALCIUM 8.6 mg/dL (8.4-10.2); CARBON DIOXIDE 27 mmol/L (22-29); CHLORIDE 105 mmol/L (98-107); CREATINE KINASE 35 IU/L (29-168); CREATININE, SERUM 0.69 mg/dL (0.57-1.11); GLUCOSE 105 mg/dL (74-118); MAGNESIUM 2.2 MG/DL (1.3-2.1); POTASSIUM 3.8 mmol/L (3.5-5.1); SODIUM 142 mmol/L (136-145)
[2022-11-01 07:50] VITALS: BP 138/76
== END 2022-11-01 09:15 | disposition home or self-care (01) ==
LOC: ER 06:05
DX: R60.0 Localized edema (principal); I50.9 Heart failure, unspecified; F41.9 Anxiety disorder, unspecified; Z86.73 Personal history of transient ischemic attack (TIA), and cerebral infarction without residual deficits; Z86.718 Personal history of other venous thrombosis and embolism
CPT/HCPCS: 36415; 71045; 80053; 82550; 82553; 83735; 83880; 84484; 85025; 93005; 99284; J1940 ×2